=== PATIENT | male | born 1965 | race Caucasian/White ===

== ENCOUNTER → 2020-04-21 00:19 | Outpatient (CLI) | payer OTHER, SELFPAY ==
[2020-04-21 18:19] LABS: SARS-CoV-2 RNA PCR Negative
== END ==
PROVIDERS: PCP Family Medicine; Visit Provider Internal Medicine Gastroenterology
DX: Z01.812 Encounter for preprocedural laboratory examination (principal); Z20.822 Contact with and (suspected) exposure to COVID-19
CPT/HCPCS: C9803; U0003; U0005

== ENCOUNTER 2020-04-24 00:43 | Day surgery (SDC) | payer OTHER, SELFPAY ==
[2020-04-07 14:26] VITALS: BMI 34.0
[2020-04-24 08:38] VITALS: BMI 33.1
[2020-04-24 08:43] VITALS: BP 141/94; PULSE 85; RESP 18; TEMP 36.5; O2SAT 97
--- NOTE | 2020-04-24 08:51 | WPDANESEPPF ---
Anes - Initial Pre Proc Eval Procedure: Operation Date: 04/24/20 09:45 Proposed Procedures p Screening Colonoscopy - Toi Mcmanus MD Date/Time: 04/24/20 08:51 Surgeon: Toi Mcmanus MD Pre Op Diagnosis: Neoplasm Screening Patient Data Age: 54 Gender: M Height: 6 ft Weight: 110.9 kg Last Vital Signs Temp 36.5 C 04/24/20 08:43 Pulse 85 04/24/20 08:43 Resp 18 04/24/20 08:43 BP 141/94 H 04/24/20 08:43 Pulse Ox 97 04/24/20 08:43 Allergies Allergy/AdvReac Type Severity Reaction Status Date / Time No Known Allergies Allergy Verified 04/24/20 08:37 Home Medications Medication Instructions Recorded Confirmed Type hydrochlorothiazide 12.5 mg tablet 12.5 mg PO DAILY #90 tablet 03/12/20 04/07/20 Rx rosuvastatin 20 mg tablet 20 mg PO DAILY #30 tablet 04/03/20 04/07/20 Rx aspirin 81 mg PO DAILY 04/07/20 04/07/20 History Patient hx anesthesia problems: none Family hx anesthesia problems: none PMFSH Past Medical History Medical History (Updated 04/20/20 @ 09:34 by CHICHO Treviño) BMI 34.0-34.9,adult Family History Family History Father Family history of coronary artery disease Grandparent Family history of coronary artery disease Other Hypertension Social History Social History Smoking status: Never smoker Alcohol intake: current Alcohol use details: rarely Living arrangements: with family Gender identity (if verbalized by the patient): Male Spiritual care concerns: No Anes - Eval Final PreProcedure Day of Procedure 04/24/20 08:51 Patient weight: obese Heart: regular rate and rhythm Lungs: clear to auscultation Airway: Mallampati scale class II Neurological: alert and oriented Last oral intake: >/= 8 hours ASA classification: II Emergent: no Anesthetic plan: proceed Anesthesia type and monitoring: general GIVS and standard monitoring Informed Consent: The patient's anesthetic plan and its attendant risks and benefits were discussed with the patient/family/POA. Questions were solicited and answers provided to the satisfaction of the patient/family/POA.
[2020-04-24] MEDS: LACTATED RINGERS 1,000 ML 150 ML IV CONT (08:52)
--- NOTE | 2020-04-24 09:07 | PM.HPGS ---
History of Present Illness History of Present Illness Consent: Risks, benefits, and alternatives have been discussed and questions answered. Patient agrees to proceed with procedure. Chief complaint: Neoplasm Screening Narrative: Tano Rutherford is a 54 year old male here for first screening colonoscopy Review of Systems Constitutional: Constitutional: Denies headache(s) and Denies weakness Eyes: Eyes: Denies blurry vision ENT: Reports Normal hearing present, Denies headache(s) and Denies neck pain Cardiovascular: Cardiovascular: Denies chest pain and Denies dyspnea Respiratory: Respiratory: Denies dyspnea Gastrointestinal: Gastrointestinal: Reports no additional gastrointestinal complaints Genitourinary: Genitourinary: Denies dysuria Musculoskeletal: Musculoskeletal: Denies neck pain Integumentary/Breasts: Skin/Breast: Denies dry skin Neurologic: Reports Normal hearing present, Denies headache(s) and Denies weakness Psychiatric: Psychiatric: Denies anxiety Endocrine: Endocrine: Denies change in body appearance Hematologic/Lymphatic: Hematologic/Lymphatic: Denies easy bleeding Allergic/Immunologic: Allergic/Immunologic: Denies urticaria [facility] Past Medical History Medical History (Updated 04/20/20 @ 09:34 by CHICHO Treviño) BMI 34.0-34.9,adult Family History Family History Father Family history of coronary artery disease Grandparent Family history of coronary artery disease Other Hypertension Social History Social History Smoking status: Never smoker Alcohol intake: current Alcohol use details: rarely Living arrangements: with family Gender identity (if verbalized by the patient): Male Spiritual care concerns: No Meds Home Medications and Allergies Home Medications Medication Instructions Recorded Confirmed Type hydrochlorothiazide 12.5 mg tablet 12.5 mg PO DAILY #90 tablet 03/12/20 04/07/20 Rx rosuvastatin 20 mg tablet 20 mg PO DAILY #30 tablet 04/03/20 04/07/20 Rx aspirin 81 mg PO DAILY 04/07/20 04/07/20 History Allergies Allergy/AdvReac Type Severity Reaction Status Date / Time No Known Allergies Allergy Verified 04/24/20 08:37 Vital Signs Vital Signs - 24 hr 04/24/20 08:43 Temperature 97.7 F Pulse Rate 85 Respiratory Rate 18 Blood Pressure 141/94 H Pulse Oximetry 97 Exam Const: General: comfortable and no acute distress HENMT: General nose exam: Normal nares present Eyes: General: appearance normal, both eyes and all related structures Neck: Neck: no JVD Resp: Auscultation: clear to auscultation bilaterally Cardio: Rate: regular rate Rhythm: regular rhythm GI: Inspection: non-distended GI Palp: Yes Soft to palpation Skin: General skin exam: normal color Neuro: General: gait normal Speech: normal speech Extrem: General: normal to inspection Psych: Mental Status: mental status grossly normal Assessment and Plan Assessment and plan (1) Screening for malignant neoplasm of colon: Code(s): Z12.11 - Encounter for screening for malignant neoplasm of colon Status: Acute Assessment and Plan: proceed with colonoscopy
[2020-04-24 09:32] VITALS: BP 116/73; PULSE 84; RESP 13; O2SAT 94
[2020-04-24 09:42] VITALS: BP 127/90; PULSE 82; RESP 16; O2SAT 96
[2020-04-24 09:52] VITALS: BP 128/91; PULSE 73; RESP 16; O2SAT 94
== END 2020-04-24 10:10 | disposition home or self-care (01) ==
PROVIDERS: PCP Family Medicine; Visit Provider Internal Medicine Gastroenterology
PROC: 0DJD8ZZ Inspection of Lower Intestinal Tract, Via Natural or Artificial Opening Endoscopic (ICD-10-PCS; CPT 45378; principal; 2020-04-24 09:45)
DX: Z12.11 Encounter for screening for malignant neoplasm of colon (principal); D12.5 Benign neoplasm of sigmoid colon; K64.8 Other hemorrhoids; E66.8 Other obesity; Z68.33 Body mass index [BMI] 33.0-33.9, adult; Z79.82 Long term (current) use of aspirin
CPT/HCPCS: 45385; 88305; C9803; J2001; J2704; J7120; U0003; U0005

== ENCOUNTER 2020-05-23 09:04 | Outpatient (CLI) | payer OTHER, SELFPAY ==
--- NOTE | 2020-06-09 12:15 | WPDHOMESLEEP ---
Sleep Study - Home Unattended Date of Study: 05/23/20 Ordering Provider: Akin Davis MD Interpreting Provider: Yesi Bravo MD Home Sleep Study Type: Apnea Link Air Height: 1.83 m Weight: 108.862 kg Body Mass Index: 32.5 Neck Circumference (inches): 17.75 [place]: 10 Reason for Sleep Study Loud snoring, witnessed apneas, currently using a mouthguard from his dentist 08/26/2016 home sleep study with mild obstructive sleep apnea AHI 12.8, snoring, desaturation to 81%, uses a mouth guard Sleep History Tano Rutherford is a 55-year-old man who is a loud snorer, and this disrupts his 's sleep. She reports that he occasionally stops breathing at night, and that he gasps for breath while sleeping. He has used a mouthguard from his dentist. He does not awaken from sleep feeling short of breath. He rarely awakens at night with heartburn, belching or coughing. He constantly snores loudly enough that his complains. He rarely has trouble sleeping when he has a cold. He rarely sweats excessively at night. He never notices his heart pounding or beating irregularly at night. He occasionally falls asleep during the day, never involuntarily. He rarely falls asleep while driving. He does not have loss of muscle tone with strong emotion. He does not have daytime difficulties due to his excessive sleepiness. He does not feel paralyzed on waking or falling asleep and does not have vivid dreamlike scenes upon awakening or falling asleep. He does not feel afraid to go to sleep. He rarely has nightmares, rarely remembers his dreams. He occasionally has racing thoughts. He occasionally feels sad or depressed. He frequently has anxiety. He rarely has muscular tension or notices parts of his body jerking. He does not kick at night. He rarely has crawling and aching feelings in his legs and rarely has any kind of leg pain at night. He does not have morning jaw pain. He does not grind his teeth during sleep, is not bothered by pain during the day and is not awakened by pain at night. He rarely wakes up feeling stiff in the morning with sore achy muscles or pain in his neck and spine. He has fatigue and feels tense. Normal bedtime is between 11:00 p.m. and 12 midnight falling asleep quickly waking at most once at night to urinate. He wakes the morning between 630 and 7:00 a.m.. On weekends, bedtime is a little later, midnight to 12:30 a.m. and he wakes between 9 and 10:00 a.m.. He does not take naps. A short nap is not refreshing. He feels better in the afternoon compared to the morning. He usually awakens feeling refreshed. Habits: Never smoked tobacco. Rare caffeine. Rare alcohol. [facility] Past Medical History Medical History (Updated 06/09/20 @ 12:26 by Yesi Bravo MD) BMI 34.0-34.9,adult Essential hypertension Obstructive sleep apnea Family History Family History Father Family history of coronary artery disease Grandparent Family history of coronary artery disease Other Hypertension Social History Social History Smoking status: Never smoker Alcohol intake: current Gender identity (if verbalized by the patient): Male Spiritual care concerns: No Medications Home Medications Medication Instructions Recorded Confirmed Type aspirin 81 mg PO DAILY 04/07/20 04/07/20 History rosuvastatin 20 mg tablet 20 mg PO DAILY #30 tablet 04/25/20 Rx Medications: handwritten list also includes hydrochlorothiazide 12.5 mg daily for hypertension Sleep Procedure This test was performed using 4 channel monitoring including respiratory effort channel, snoring channel, heart rate channel, and oxygen saturation channel. This study was scored using [facility] guidelines. Sleep Architecture Not applicable for home sleep test. Respiratory Analysis The recording time is 7 hours 12 minutes. E
[2020-06-09 19:15] VITALS: BMI 32.5
== END 2020-05-23 09:05 | disposition home or self-care (01) ==
PROVIDERS: PCP Family Medicine; Visit Provider Family Medicine
DX: G47.33 Obstructive sleep apnea (adult) (pediatric) (principal)
CPT/HCPCS: 95806

== ENCOUNTER 2022-09-25 18:08 | Emergency (ER) | payer OTHER, BC, SELFPAY ==
--- NOTE | 2022-09-25 18:19 | ED.URI ---
HPI - URI/Sore Throat General Chief Complaint: Upper Respiratory Infection Stated Complaint: COUGH/SORE THROAT Time Seen by Provider: 09/25/22 18:19 Source: patient and RN notes reviewed History of Present Illness HPI Narrative: Patient is a 57-year-old male who presents to urgent care with complaints of a cough and sore throat since Friday night. Patient denies any fever, nausea, vomiting. Denies any known exposures. Patient has been taking DayQuil and NyQuil [id number] without much symptom relief. Denies any shortness of breath. No other acute complaints. No acute distress noted. Patient aware of the plan of care. Some parts of this dictation were generated by voice recognition software and may contain typographical and/or grammatical inaccuracies. Related Data Home Medications Medication Instructions Recorded Confirmed aspirin 81 mg tablet 81 mg PO DAILY 04/07/20 09/25/22 Allergies Allergy/AdvReac Type Severity Reaction Status Date / Time No Known Allergies Allergy Verified 09/25/22 18:20 Review of Systems Review of Systems: CONSTITUTIONAL: Denies fever, chills, or sweats. EYES: Denies visual changes, redness, or discharge. ENT: Denies rhinorrhea, congestion, otalgia. Reports of sore throat CARDIOVASCULAR: Denies chest pain, palpitations, or edema. RESPIRATORY: Reports of nonproductive cough without dyspnea GASTROINTESTINAL: Denies abdominal pain, nausea, vomiting, or diarrhea. GENITOURINARY: Denies dysuria or hematuria. SKIN: Denies rash or itching. MUSCULOSKELETAL: Denies back pain, joint pain, or myalgia. NEUROLOGIC: Denies headache, numbness, or weakness. All other systems reviewed are negative, except as documented in HPI. [facility] Past Medical History Medical History (Updated 09/25/22 @ 18:43 by LUDA Eisenberg) BMI 34.0-34.9,adult Essential hypertension Obstructive sleep apnea Family History Family History Father Family history of coronary artery disease Grandparent Family history of coronary artery disease Other Hypertension Social History Social History Smoking status: Never smoker Alcohol intake: current Alcohol use details: rarely Living arrangements: with family Gender identity (if verbalized by the patient): Male Spiritual care concerns: No Comments At the time of my signature, I reviewed and agree with the nursing past medical, surgical, social, and family history. There is no relevant family history pertinent to the patient complaint. Exam Narrative: GENERAL: This is a well-nourished, well-developed patient, in no apparent distress. HEAD: normocephalic, atraumatic. EYES: PERRL. Sclera clear/white. Vision is grossly intact. EARS: External ears normal, auditory canals clear and without drainage, TMs normal without perforation. Hearing grossly intact. NOSE: External nose normal with no obvious nasal discharge, nares without redness, no rhinorrhea. THROAT: Mucous membranes moist, posterior pharynx clear. Moderate postnasal drainage NECK: Neck supple, non-tender mild bilateral submandibular lymphadenopathy RESPIRATORY: Dry cough noted on exam. Clear to auscultation. Breath sounds equal bilaterally. No wheezes, rales, or rhonchi. SKIN: warm, intact with no suspicious lesions or rash, good texture and turgor. NEURO: awake, alert, and oriented to person, place and time. There were no obvious focal neurologic abnormalities. EXTREMITIES: No clubbing, cyanosis, or edema. Course Course Level of Care: Express Care Visit Vital Signs Vital signs: Vital Signs Temperature 97.7 F 09/25/22 18:27 Pulse Rate 77 09/25/22 18:27 Respiratory Rate 16 09/25/22 18:27 Blood Pressure 148/97 H 09/25/22 18:27 Pulse Oximetry 98 09/25/22 18:27 Temperature 97.7 F 09/25/22 18:27 Pulse Rate 77 09/25/22 18:27 Respiratory Rate
[2022-09-25 18:27] VITALS: BP 148/97; PULSE 77; RESP 16; TEMP 36.5; O2SAT 98
== END 2022-09-25 18:46 | disposition home or self-care (01) ==
PROVIDERS: Emergency Provider Nurse Practitioner Family; PCP Family Medicine
DX: J06.9 Acute upper respiratory infection, unspecified (principal); I10 Essential (primary) hypertension; G47.33 Obstructive sleep apnea (adult) (pediatric); Z79.82 Long term (current) use of aspirin
CPT/HCPCS: 87081; 87880; 99213; G0463

== ENCOUNTER 2022-09-27 10:31 | Emergency (ER) | payer OTHER, BC, SELFPAY ==
--- NOTE | ~2022-09-27 | XR_ITS ---
Clinical Indication: Cough PA and lateral views of the chest: Comparison: 10/04/2015 Findings: The lungs are clear, without evidence of focal consolidation or pleural effusion. Cardiome diastinal silhouette is within normal limits. Bones and soft tissues are unremarkable. Impression: Normal chest. Reviewed, dictated and finalized at location . Impression: Normal chest.
[2022-09-27 11:00] VITALS: BP 143/87; PULSE 88; RESP 19; TEMP 36.9; O2SAT 98
--- NOTE | 2022-09-27 12:07 | ED.GENADULT ---
HPI - General Adult General Chief complaint: Upper Respiratory Infection Stated complaint: Cough and congestion Time Seen by Provider: 09/27/22 11:27 Source: patient Mode of arrival: ambulatory Limitations: no limitations History of Present Illness HPI narrative: This is a 57-year-old male who presents to the ED with chief complaint of cough, sore throat and runny nose for the past 5 days. Patient states that the cough is the most significant symptom. He states it is causing him to lose sleep. He reports he is coughing up yellow phlegm. Denies hemoptysis. He reports associated sore throat due to the cough. He also reports postnasal drainage. He states he was seen at urgent care a couple of days ago and given prednisone and Tessalon Perles with no relief. Reports chest pain with cough. Denies fevers, chills, exertional chest pain or shortness of breath, abdominal pain or nausea or vomiting. Related Data Home Medications Medication Instructions Recorded Confirmed aspirin 81 mg tablet 81 mg PO DAILY 04/07/20 09/25/22 Allergies Allergy/AdvReac Type Severity Reaction Status Date / Time No Known Allergies Allergy Verified 09/27/22 11:19 [facility] Past Medical History Medical History (Updated 09/27/22 @ 12:10 by Marlo Sullivan PA-C) BMI 34.0-34.9,adult Essential hypertension Obstructive sleep apnea Family History Family History Father Family history of coronary artery disease Grandparent Family history of coronary artery disease Other Hypertension Social History Social History Smoking status: Never smoker Alcohol intake: current Alcohol use details: rarely Living arrangements: with family Gender identity (if verbalized by the patient): Male Spiritual care concerns: No Exam Narrative: GENERAL: Well-appearing, well-nourished, and in no acute distress. HEAD: Normocephalic, atraumatic. EYES: PERRLA and EOMI. ENT: Rhinorrhea present. Congestion present. Mucous membranes moist. Oropharynx without tonsillar hypertrophy exudate or other lesions. Posterior oropharynx is slightly erythematous with no exudates. NECK: Supple. No adenopathy or masses. CHEST: No respiratory distress. Clear to auscultation. No wheezes rales or rhonchi HEART: Regular rate and rhythm. No murmur heard. Normal peripheral pulses. ABDOMEN: Soft, nontender, nondistended, normal active bowel sounds. MSK: Normal range of motion. No edema. SKIN: Warm, dry, no rash. NEURO: Alert and oriented x3. No focal deficits. PSYCH: Normal mood and affect. Course Vital Signs Vital signs: Vital Signs Temperature 98.4 F 09/27/22 11:00 Pulse Rate 88 09/27/22 11:00 Respiratory Rate 19 09/27/22 11:00 Blood Pressure 143/87 H 09/27/22 11:00 Pulse Oximetry 98 09/27/22 11:00 Oxygen Delivery Room Air 09/27/22 11:00 Temperature 98.4 F 09/27/22 11:00 Pulse Rate 88 09/27/22 11:00 Respiratory Rate 19 09/27/22 11:00 Blood Pressure 143/87 H 09/27/22 11:00 Pulse Oximetry 98 09/27/22 11:00 Oxygen Delivery Room Air 09/27/22 11:10 Medical Decision Making MDM Narrative Medical decision making narrative: This is a 57-year-old male who presents to the ED for chief complaint of increased cough and URI symptoms. He was seen initially by urgent care few days ago and given Tessalon Perles and prednisone with no relief. States he called his PCP and they told him to go to the ER for his cough. Vitals are normal. Exam is benign. Symptoms consistent with URI. Most likely bronchitis. Negative chest x-ray today. He states he is having a productive cough so I wrote for a Z-[place]. Also given prescription for guaifenesin. Supportive measures such as saline rinses discussed. He is stable for discharge. Encouraged to follow-up with PCP. He is understanding and agreeable with the plan for discharge a
== END 2022-09-27 12:15 | disposition home or self-care (01) ==
PROVIDERS: Emergency Provider Physician Assistant; PCP Family Medicine
DX: J40 Bronchitis, not specified as acute or chronic (principal); I10 Essential (primary) hypertension; G47.33 Obstructive sleep apnea (adult) (pediatric)
CPT/HCPCS: 71046; 99283

== ENCOUNTER 2023-04-24 14:56 | Emergency (ER) | payer BC, SELFPAY ==
[2023-04-24 15:17] VITALS: BP 128/89; PULSE 91; RESP 16; TEMP 36.7; O2SAT 97
--- NOTE | 2023-04-24 15:18 | ED.GENADULT ---
HPI - General Adult General Chief complaint: Upper Respiratory Infection Stated complaint: SORE THROAT/DRAINAGE/SINUS/COUGH Source: patient, RN notes reviewed and old records reviewed Mode of arrival: ambulatory Limitations: no limitations History of Present Illness HPI narrative: 57-year-old male patient presents to [facility] with complaints of cough, congestion, sinus pressure, sore throat, myalgia, fatigue this started on Friday. Patient taking [id number] medications with no relief. Related Data Home Medications Medication Instructions Recorded Confirmed aspirin 81 mg tablet 81 mg PO DAILY 04/07/20 04/24/23 acyclovir 400 mg tablet 400 mg PO DAILY PRN fever blister 09/30/22 04/24/23 Allergies Allergy/AdvReac Type Severity Reaction Status Date / Time No Known Allergies Allergy Verified 04/24/23 15:05 Review of Systems Constitutional: Constitutional: Reports no additional constitutional complaints, Reports body ache(s), Denies chills, Denies fatigue, Denies fever(s) and Denies headache(s) Eyes: Eyes: Reports no additional eye complaints and Denies blurry vision ENT: Reports system reviewed and no additional complaints, except as documented, Denies vertigo, Denies dizziness, Denies ear discharge, Denies otalgia, Denies facial pain, Denies headache(s), Reports nasal congestion, Reports nasal discharge, Reports sinus pain, Reports sinus pressure and Reports sore throat Cardiovascular: Cardiovascular: Reports no additional cardiovascular complaints, Denies chest pain, Denies chest pain at rest, Denies rapid heart rate and Denies dyspnea Respiratory: Respiratory: Reports no additional respiratory complaints, Reports chest congestion, Reports cough, Denies pain on inspiration, Denies pain with cough and Denies dyspnea Gastrointestinal: Gastrointestinal: Denies abdominal pain, Denies diarrhea, Denies nausea and Denies vomiting Integumentary/Breasts: Skin/Breast: Denies rash Neurologic: Reports system reviewed and no additional complaints, except as documented, Denies vertigo, Denies dizziness and Denies headache(s) Endocrine: Endocrine: Denies fatigue PMFSH Past Medical History Medical History BMI 34.0-34.9,adult BMI greater than 30 Essential hypertension Obstructive sleep apnea Family History Family History Father Family history of coronary artery disease Grandparent Family history of coronary artery disease Other Hypertension Social History Social History Smoking status: Never smoker Alcohol intake: current Alcohol use details: rarely Substance use: never Lack of Transportation: No Lack of Food: Never True Current Housing: I Have Housing Concerned About Future Housing: No Difficulty Paying Gas/Electric Bills: No Difficulty Paying for Meds: No Currently Unemployed: No Education: Bachelor's Degree Difficulty w/ Childcare or Family Care: No Living arrangements: with family Gender identity (if verbalized by the patient): Male Spiritual care concerns: No Comments At the time of my signature, I reviewed and agree with the nursing past medical, surgical, social, and family history. There is no relevant family history pertinent to the patient complaint. Exam Const: General: cooperative, healthy appearing, no acute distress and well nourished Nutritional Appearance: well nourished Orientation/consciousness: patient oriented x3 Limitations: no limitations HENMT: Head: normal to inspection and normocephalic Ears: external ears normal, TM's normal bilaterally, EAC's normal and mastoids normal Face/Nose/Sinus: No nasal polyps present, Normal nasal mucous membranes and turbinates present, normal facial exam and No sinus tenderness Face and sinus: normal facial exam Mouth: Yes Normal oral and palatal muc
== END 2023-04-24 15:43 | disposition home or self-care (01) ==
PROVIDERS: Emergency Provider Registered Nurse; PCP Family Medicine
DX: B34.9 Viral infection, unspecified (principal); Z20.822 Contact with and (suspected) exposure to COVID-19; I10 Essential (primary) hypertension; Z79.82 Long term (current) use of aspirin
CPT/HCPCS: 87081; 87426; 87804; 87880; 99213; G0463